=== PATIENT | female | born 1995 | race Caucasian/White ===

== ENCOUNTER 2018-02-20 18:04 | Emergency (ER) | payer OTHER ==
[~2018-02-20] VITALS: Ht 170.2 cm; Wt 80.3 kg
[2018-02-20 18:06] VITALS: BP 114/78
[2018-02-20] MEDS ORDERED: LAMO100T5 PO (18:20)
[2018-02-20] MEDS ORDERED: DOXE25CA PO (18:20)
[2018-02-20] MEDS ORDERED: IBUPROFEN 800 MG TABLET PO STA (19:02)
[2018-02-20] MEDS ORDERED: IBUPROFEN 200 MG TABLET ONE (19:03)
== END 2018-02-20 19:28 | disposition home or self-care (01) ==
LOC: ED 19:22
DX: S63.521A Sprain of radiocarpal joint of right wrist, initial encounter (principal); F31.9 Bipolar disorder, unspecified; Z79.899 Other long term (current) drug therapy; W18.30XA Fall on same level, unspecified, initial encounter; Y93.89 Activity, other specified; Y99.8 Other external cause status; Y92.89 Other specified places as the place of occurrence of the external cause
CPT/HCPCS: 82962; 99284